=== PATIENT | female | born 1975 | race Hispanic/Latino ===

== ENCOUNTER 2023-08-24 21:42 | Emergency (ER) | payer OTHER, SELFPAY ==
[2023-08-24 21:44] VITALS: BP 119/90
--- NOTE | 2023-08-24 22:26 | EDRN ---
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 Pt was in the shower/bathtub cleaning it when she slipped and fell onto her outstretched L arm causing pain in her L wrist and distal forearm. This happened around 1500. Pt sent home by
clinical laboratory manager. Pt took 1 ibuprofen around 1800 and one more prior to coming to ED. Pt applied ice at home. No head injury.
--- NOTE | 2023-08-24 22:31 | ED.GENMED ---
History of Present Illness
<WOJCIECH Alonzo - Last Filed: 08/25/23 00:32>
General
Chief Complaint: Musculo-Skeletal Complaint
Source: patient and family
Exam Limitations: none
Time Seen by Provider: 08/24/23 22:17
Nursing documentation reviewed up to this point in time: agreed with
History of Present Illness
History of Present Illness:
48 year old female presents for evaluation of left wrist pain/swelling. Pt presents with family member who is interpreting for her. 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
at approximately 1500 on 08/23. She denies trauma to the head. She endorses pain with wrist movement as well as hand practice managers. She took 2 tablets of Advil at 1800 as well as at 2100 with no pain relief. Pain is currently a 10/10 per pt. She denies
dizziness/syncope prior to the fall. She also denies numbness/tingling, radiation of pain, N/V, bleeding, and lacerations.
Past History
<WOJCIECH Alonzo - Last Filed: 08/25/23 00:32>
Past History
ED Past Medical History: None
ED Past Surgical History: Appendectomy
Social History
Tobacco: Non-smoker
Alcohol: None
Personal:
Living: with family
Employment: Employed
Family History
Family History: Other (Noncontributory)
Review of Systems
<WOJCIECH Alonzo - Last Filed: 08/25/23 00:32>
Review of Systems
Allergies reviewed?: Yes
Constitutional: Reports no symptoms
Respiratory: Reports no symptoms
Cardiac: Reports no symptoms
ABD/GI: Reports no symptoms
Musculoskeletal: Reports joint pain (L wrist ) and joint swelling (L wrist )
Skin: Reports no symptoms
Neurological: Reports no symptoms
Endocrine: Reports no symptoms
Hematologic/Lymphatic: Reports no symptoms
Psychiatric: Reports no symptoms
Phy Exam
<WOJCIECH Alonzo - Last Filed: 08/25/23 00:32>
General Physical Exam
General Presentation: mild distress
General age: appears stated age
General Skin: warm
General Habitus: normal
General Mental: alert
General Hydration: appears well hydrated
Cardiovascular Exam
Cardiovascular Exam: regular rate/rhythm
Pulmonary Exam
Pulmonary Exam: lungs clear and no respiratory distress
Neurological Exam
Neurological Exam: alert, oriented x3, no motor deficits and no sensory deficits
Musculoskeletal Exam
Musculoskeletal Exam: joint swelling (mild swelling of left wrist ), neuro vasc intact and other (limited ROM with left wrist inversion, eversion, and supination. Pt also tender over anatomical snuffbox. )
Course
<WOJCIECH Alonzo - Last Filed: 08/25/23 00:32>
Orders/Labs/Results
Orders:
Orders
08/24/23 21:46
Wrist, Left 3 Views CR [CR Wrist - Left Min 3 Views] Urgent
Comment:
Reason For Exam: fall;pain and swelling
08/24/23 23:06
Univ. Wrist w/ Thumb Left-Tx ONCE
Vital Signs
Initial and Last Documented VS:
Initial Vital Signs
Temp Pulse Resp BP Pulse Ox
99.2 F 106 17 119/90 95
08/24/23 21:44 08/24/23 21:44 08/24/23 21:44 08/24/23 21:44 08/24/23 21:44
Last Documented Vital Signs
Temp Pulse Resp BP Pulse Ox
99.2 F 79 17 97/65 98
08/24/23 21:44 08/24/23 23:25 08/24/23 21:44 08/24/23 23:25 08/24/23 23:25
<Linda Roe DO - Last Filed: 08/24/23 23:15>
Orders/Labs/Results
Orders:
Orders
08/24/23 21:46
Wrist, Left 3 Views CR [CR Wrist - Left Min 3 Views] Urgent
Comment:
Reason For Exam: fall;pain and swelling
08/24/23 23:06
Univ. Wrist w/ Thumb Left-Tx ONCE
Vital Signs
Initial and Last Documented VS:
Initial Vital Signs
Temp Pulse Resp BP Pulse Ox
99.2 F 106 17 119/90 95
08/24/23 21:44 08/24/23 21:44 08/24/23 21:44 08/24/23 21:44 08/24/23 21:44
Last Documented Vital Signs
Temp Pulse Resp BP Pulse Ox
99.2 F 79 17 97/65 98
08/24/23 21:44 08/24/23 23:25 08/24/23 21:44 08/24/23 23:25 08/24/23 23:25
<WOJCIECH Alonzo - Last Filed: 08/25/23 00:32>
MDM/Problems Addressed
Differential Diagnosis Includes:
Left wrist sprain, Left wrist fracture
MDM/Problems Addressed:
Wrist, Left 3 Views CR
<Linda Roe DO - Last Filed: 08/24/23 23:15>
*Radiology
Radiology exam reviewed: preliminary read by ED provider (Left wrist x-rays negative for fracture.)
*Pulse Oximetry
Patient hypoxic: no
*Critical Care Note
Total Time (30-74mins, 75-104mins- exclusive of procedures): Not Applicable
<WOJCIECH Alonzo - Last Filed: 08/25/23 00:32>
Update Note
Update Note:
XR left wrist negative for fracture
ED Attending Note
<WOJCIECH Alonzo - Last Filed: 08/25/23 00:32>
-
Portions of this chart may have been created with voice recognition software.� Occasional wrong word or��sound alike� substitutions may have occurred due to the inherent limitations of voice recognition software.
<Linda Roe DO - Last Filed: 08/24/23 23:15>
ED Attending Note
Patient seen and examined by attending physician: Yes
I performed the substantive portion of visit, reviewed & personally made and approve the management plan that is documented in note by myself or SUZANNE.: Yes
ED Attending Note:
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 While at work today around 3 PM, cleaning a tub she slipped and fell forward onto her outstretched left hand. She complains of pain about her left
wrist with only minimal relief with 400 mg of ibuprofen she took this evening x 2. She denies weakness nor numbness. She complains of pain about her left breast. No history of previous injuries to her breast.
She denies head injury. No neck or back pain.
Patient's primary language is Hungarian.
48-year-old woman appears somewhat older than stated age, bright and alert, pleasant, appears in no acute distress. Daughter is accompanying and is interpreting.
HEENT: The head is normocephalic, atraumatic. Oral mucosa is moist.
Neck is supple, nontender.
Heart is regular rate and rhythm.
Respirations are easy nonlabored.
Abdomen is soft and nontender.
Left wrist has mild to moderate global tenderness about the wrist without soft tissue swelling nor gross deformity. There is moderately restricted range of motion of the wrist related to pain. There is very minimal soft tissue swelling left thenar
eminence with mild local tenderness to palpation. There is no tenderness to the digits and full range of motion of digits without difficulty nor pain. There is no tenderness to the forearm or elbow.
Peripheral pulses are full and equal bilaterally. Sensation and strength intact.
Concern for left wrist fracture, left wrist sprain/contusion. Neurovascularly intact.
Awaiting left wrist x-ray.
08/24/2023 2310 PM
Left wrist x-ray initially interpreted by myself shows no evidence of fracture. No dislocation.
I suspect contusion/sprain strain injury to the wrist.
Will place in a wrist splint with thumb.
Will prescribe diclofenac for as needed pain.
Recommend ice, elevation, rest.
Patient works a second job at [employer], scheduled to work tomorrow. A work note has been provided for tomorrow.
As injury is work-related recommend she follow-up with work health provider as per Juanpablo Arshad.
Discharge Plan
Departure
Patient Disposition: Home (Routine Discharge)
Date of Disposition: 08/24/23
Time of Disposition: 23:11
Patient with high blood pressure during this ER visit?: No
Condition: Good
Discharge Problem:
acute left wrist contusion
Instructions: Wrist Sprain ED
Prescriptions:
New
diclofenac sodium 75 mg tablet,delayed release (DR/EC)
75 mg PO BID PRN (Reason: pain) Qty: 30 0RF
No Action
famotidine 20 MG tablet
20 mg PO BID Qty: 20 0RF
diphenhydramine HCl [Banophen] 50 MG capsule
50 mg PO Q6HPRN PRN (Reason: itch, hives) Qty: 30 0RF
prednisone 20 MG tablet
40 mg PO DAILY Qty: 11 0RF
Rx Instructions:
40 mg daily for 4 days, then 20 mg daily for 3 days. take with food.
Referrals:
NONE,* [Family Provider] -
Stand Alone Forms: Return to Work
Activity Restrictions/Additional Instructions:
Follow-up with your work health provider as per Juanpablo Arshad.
Interventions
Interventions:
*Risk Screen - Suicide Last Done: 08/24/23 21:44
*General Assessment Last Done: 08/24/23 21:44
*Neglect/Abuse Screening Last Done: 08/24/23 21:44
*ED COVID-19 Vaccine History Last Done: 08/24/23 21:44
*Nursing Disposition Last Done: 08/24/23 23:34
ED-Musculoskeletal Assessment Last Done: 08/24/23 22:24
Discharge Date and Time
Discharge Date/Time: 08/24/23 23:34
Print Language: SWISS
[2023-08-24 23:25] VITALS: BP 97/65
== END 2023-08-24 23:34 | disposition home or self-care (01) ==
LOC: EMR 21:42
PROVIDERS: EMERGENCY PHYSICIAN Emergency Medicine
DX: S60.212A Contusion of left wrist, initial encounter (principal); W01.0XXA Fall on same level from slipping, tripping and stumbling without subsequent striking against object, initial encounter; Y99.0 Civilian activity done for income or pay
CPT/HCPCS: 99283; 73110